=== PATIENT | male | born 1995 | race Caucasian/White ===

== ENCOUNTER 2018-09-13 10:45 | Emergency (ER) | payer BC ==
--- NOTE | 2018-09-13 11:09 | EDPHY ---
General - History Smoking Status: Never smoked Time Seen by Provider: 09/13/18 11:06 Narrative: CLINICAL IMPRESSION: Right knee pain ASSESSMENT/PLAN: Patient is a 22-year-old male with no significant medical history who presents with complaint of right knee pain after sustaining a twisting injury while skiing yesterday. Patient is nontoxic-appearing, he is in no acute distress on arrival. Knee x-rays reveal no acute bony abnormality. There was no evidence of acute fracture, dislocation, compartment syndrome, Loya cyst or neurovascular compromise. His history and physical examination is most consistent with right knee pain, query MCL injury. The patient was placed in a knee immobilizer. CMS intact post splint placement. He declined any need for pain medication in the emergency department, he will otherwise continue Tylenol and ibuprofen. The patient is a student at the [employer], a primary care provider referral was given as well as Orthopedic surgery. He will call to schedule appointment for follow-up with ortho next week. He understands that he may need additional imaging or even physical therapy. Return precautions discussed-patient to return to the emergency Department for significantly worsening or uncontrolled pain, significant swelling, numbness or tingling of the extremity, paleness or coolness of her digits, fever or for any other concerning symptom. The patient verbalizes understanding and he is in agreement with this plan. DIFFERENTIAL DX: Knee injury while skiing including but not limited to fracture, ACL injury, MCL/ LCL contusion, muscular strain, and meniscus injury. ED PROCEDURES: Procedure: Splint placement. A knee immobilizer was applied. After application of the splint I returned and re-examined the patient. The splint was adequately immobilizing the joint and distal to the splint the patient's circulation and sensation was intact. CHIEF COMPLAINT: Right knee pain HPI: Patient is a 22-year-old male who presents to the emergency department with complaints of right knee pain after a ski accident yesterday. Patient reports while he was skiing he turned and accidentally twisted hit her right knee. He immediately experienced pain. Denies any significant swelling, has had mild difficulty with ambulation secondary to pain. He is experiencing pain along the medial aspect, denies any feelings of instability. He has not tried taking anything for pain. His pain worsens mostly with flexion and extension. No history of surgery or previous injury to this knee. Denies any other injury or complaint. PAST MEDICAL HISTORY: Denies Pertinent Past Surgical History: Denies Family History: Noncontributory Social History: Occasional alcohol, denies cigarette smoking or illicit drug use ROS: A full 10 point review of systems was negative except for those mentioned in HPI. PHYSICAL EXAM: General Appearance: Well-appearing, no acute distress. HENT: Normocephalic, atraumatic. External ears are normal. Nares are clear, mucosa is pink. Oropharynx is clear. Eyes: PERRLA, no acute vision change, nystagmus, swelling, discharge, pain or photosensitivity. Conjunctiva pink, no pallor or injection Neck: Supple, nontender, no lymphadenopathy, no midline pain, FROM, no meningismus. Respiratory: There are no retractions, lungs are clear to auscultation. Cardiac: Regular rate and rhythm, no murmurs or gallops. Gastrointestinal: Abdomen is soft, nontender, bowel sounds normal, no masses/ hernia, no rigidity, guarding or focal peritoneal findings. Skin: Warm, dry, no rashes, no nodules on palpation. Upper Extremities: Intact distal pulses, Full range of motion intact, no tenderness, no ecchymosis or edema Lower Extremities: Left lower extremity is unremarkable. Intact distal pulses , No edema, No tenderness, No cyanosis, full range of motion intact. Right lower extremity reveals no obvious edema. Patient is tender to palpation in the inferior medial aspect of the right knee, no appreciable laxity. There is no posterior fullness or tenderness. Thigh compartment is soft and nontender. There is no anterior posterior laxity. Dorsalis pedis and posterior tibialis are 2+. No calf tenderness bilaterally. MEDICAL DECISION MAKING: Patient was seen independently. Secondary supervising physician at time of evaluation was Dr. Ward, he did not evaluate this patient. Diagnosis: Right knee pain. New, requires workup Summary: See Assessment and Plan for summary of ED visit Clinical lab tests: Not applicable. Independent visualization of images, tracing, or specimens: Yes. Decision to obtain medical records or history from someone other than the patient: No Review / Summarize previous medical records: None available Patient Progress: Stable, discharged. (Lauren Mays) Medical Decision Making: I did not see this patient while he was in the emergency department. However his care was discussed with the PA while the patient was in the department. I agree with treatment plan and management (Ellis Ward) - Diagnostics Imaging Results: Imaging Impressions Knee X-Ray 09/13/18 10:51 Impression: There is no acute osseous abnormality identified. If there is further clinical concern regarding the patient's knee pain, consider MR imaging. - Objective Vital Signs: Initial Vital Signs Temperature (C) 36.7 C 09/13/18 10:48 Heart Rate 81 09/13/18 10:48 Respiratory Rate 16 09/13/18 10:48 Blood Pressure 120/68 09/13/18 10:48 O2 Sat (%) 97 09/13/18 10:48 O2 Delivery Mode Room Air Allergies/Adverse Reactions: No Known Allergies Allergy (Unverified 09/13/18 10:48) Home Medications: Medication Instructions Recorded NK [No Known Home Meds] 09/13/18 Departure - Departure Disposition: Home, Routine, Self-Care Clinical Impression: Knee pain, acute Qualifiers: Laterality: right Qualified Code(s): M25.561 - Pain in right knee Condition: Good Instructions: Knee Pain (ED) Additional Instructions: DISCHARGE INSTRUCTIONS FROM YOUR DOCTOR Thank you for visiting our emergency department today. Please keep in mind that discharge from the emergency department does not mean that there is nothing wrong - it simply means that we have not identified an emergency condition that requires further evaluation or treatment in the hospital. You should always plan to follow up with primary care for re-evaluation of your condition in the next 2-3 days. If you have been referred to a specialist, please call as soon as possible ( today or tomorrow) to schedule your follow up appointment at the appropriate time; you have been provided an orthopedic referral, please call tomorrow to schedule follow-up appointment. As discussed, you may require further evaluation and/or treatment, ie: an MRI, physical therapy, and/or an orthopedic consultation-- all depending on your healing course. Ice on and off to the affected knee. Elevate as much as possible. Wear the MICHI wrap for compression to help decrease the swelling. Wear your knee immobilizer for the next few days for comfort and support. Limit weightbearing and walking and use your crutches as needed. You can walk and bear weight as tolerated. For pain control: You may take Tylenol, I recommend 500-1000 mg every 6-8 hours as needed. Take with food and a full glass of water. Stop taking if this is upsetting her stomach. Do not exceed 4000 mg in a 24 hr period. You may also take ibuprofen, recommend 400 mg every 6 hr. Take with food and a full glass of water. Stop taking if this upsets her stomach. Do not exceed 2400 mg in a 24 hr period. Orthopedic injuries you are at increased risk for developing a blood clot in your leg. Be sure to gently stretch your calf on and off throughout the day and seek follow-up care immediately for any calf pain, redness, swellling, ankle swelling, or other concerns. Return for increased or unmanageable pain, new injury, new site of pain, numbness, tingling, weakness of the leg, coolness or discoloration of the leg/ foot/ankle, redness, swelling, fever, difficulty breathing, chest pain, calf pain, ankle swelling, severe headache, back pain, or for any other new, worsening, or worrisome symptoms. People present with illnesses and injuries in different ways, and it is always possible that we have missed something. You may always return for re-evaluation if symptoms worsen or if they are not improving or if you develop new/different symptoms. Again, thank you for choosing our emergency department. We hope that you feel better. Referrals: Zhanna Trejo MD [Medical Doctor] - As per Instructions (Please establish care with a primary care provider if you do not have 1) Berny Dolan MD [Medical Doctor] - 2-3 days, call for appt.
[2018-09-13 14:02] VITALS: BP 104/68
== END 2018-09-13 14:02 | disposition home or self-care (01) ==
DX: M25.561 Pain in right knee (principal)
CPT/HCPCS: L1830